=== PATIENT | female | born 1935 | race Caucasian/White ===

== ENCOUNTER 2021-03-13 10:51 | Inpatient (IN) | payer MEDICARE ==
[~2021-03-13] VITALS: Ht 154.9 cm; Wt 67.6 kg
[2021-03-13] MEDS ORDERED: NORVASC5 MG PO (12:04)
[2021-03-13] MEDS ORDERED: LIPITOR40 MG PO (12:05)
[2021-03-13] MEDS ORDERED: COZAAR50 M1 PO (12:07)
[2021-03-13] MEDS ORDERED: LOPRESSOR25 MG PO (12:09)
[2021-03-13] MEDS ORDERED: PROTONIX40 MG PO (12:11)
[2021-03-13] MEDS ORDERED: SEROQUEL25 MG PO (12:12)
[2021-03-13] MEDS ORDERED: CARAFATE1 G1 PO (12:13)
[2021-03-13] MEDS ORDERED: TRAD5TAB1 PO (12:14)
[2021-03-13 16:43] VITALS: BP 155/93
[2021-03-13 20:00] VITALS: BP 125/57
[2021-03-14 06:24] LABS: BASO # 0.1 10*3/uL (0.0-0.1); BASO % 1.4 % (0.0-1.0); EOS # 0.4 10*3/uL (0.0-0.4); HEMATOCRIT 34.4 % (37.0-47.0); LYMPH # 1.2 10*3/uL (1.3-4.4); LYMPH % 14.9 % (27.0-41.0); MEAN CELL VOLUME 97.5 fl (81.0-99.0); MEAN CORPUSCULAR HGB 31.2 pg (27.0-31.0); MEAN PLATELET VOLUME 9.7 fl (9.6-12.3); MONO # 0.7 10*3/uL (0.1-1.0); NEUT # 5.5 10*3/uL (2.3-7.9); NEUT % 69.2 % (47.0-73.0); PLATELET COUNT AUTOMATED 256 10*3/uL (130-400); RED BLOOD COUNT 3.53 10*6/uL (4.10-5.10); RED CELL DISTRI WIDTH 12.2 % (0-14.5); WHITE BLOOD COUNT 7.9 10*3/uL (4.8-10.8)
[2021-03-14 06:39] LABS: ALBUMIN 3.1 gm/dl (3.1-4.5); ALKALINE PHOSPHATASE 79 U/L (45-117); BUN 10 mg/dl (7-24); CHLORIDE 107 mmol/L (98-107); CHOLESTEROL 150 mg/dL (<200); CREATININE 0.89 mg/dL (0.55-1.02); POTASSIUM 3.9 mmol/L (3.5-5.1); SGOT/AST 19 IU/L (3-35); SGPT/ALT 23 U/L (12-78); SODIUM 141 mmol/L (136-145); TOTAL PROTEIN 6.7 gm/dL (6.4-8.2); TRIGLYCERIDES 114 mg/dl (<150)
[2021-03-14 06:48] LABS: LDL CHOLESTEROL 79 mg/dL (9-159); THYROID STIM HORMONE (HS) 0.397 uIU/ml (0.358-4.75)
[2021-03-14 06:56] LABS: VITAMIN D, 25-HYDROXY 41.7 ng/mL (30-100)
[2021-03-14 07:49] VITALS: BP 144/60
[2021-03-14 19:04] VITALS: BP 115/80
[2021-03-15 07:24] VITALS: BP 141/71
[2021-03-15 16:22] LABS: BILIRUBIN Negative (Negative); BLOOD Trace-Lysed (Negative); CLARITY Clear (Clear); COLOR Yellow (Yellow); GLUCOSE Negative (Negative); KETONE Trace (Negative); LEUKO ESTERASE 1+ (Negative); NITRITE Negative (Negative); UROBILINOGEN 0.2 E.U./dl (0.0-1.0)
[2021-03-15 16:39] LABS: BACTERIA TRACE; EPITHELIAL CELLS 31-40; MUCOUS 1+; RBC 0-2 rbc/hpf (0-2)
[2021-03-15 20:00] VITALS: BP 127/86
[2021-03-16 07:23] VITALS: BP 151/76
[2021-03-16 20:10] VITALS: BP 150/59
[2021-03-17 07:39] VITALS: BP 144/68
[2021-03-17 20:00] VITALS: BP 128/54
[2021-03-18 08:00] VITALS: BP 117/69
[2021-03-18 20:00] VITALS: BP 122/64
[2021-03-19 07:15] VITALS: BP 161/52
[2021-03-19 20:00] VITALS: BP 104/67
[2021-03-19 21:04] VITALS: BP 132/64
[2021-03-20 07:15] VITALS: BP 142/51
[2021-03-20 20:46] VITALS: BP 141/63
[2021-03-21 07:31] VITALS: BP 129/47
[2021-03-21 20:00] VITALS: BP 140/58
[2021-03-22 07:18] VITALS: BP 139/54
[2021-03-22 20:00] VITALS: BP 156/53
[2021-03-23 07:37] VITALS: BP 140/59
[2021-03-23] MEDS ORDERED: RIVASTIGMINE1 EAC2 T (08:31)
[2021-03-23] MEDS ORDERED: MIRTAZAPINE15 M2 PO (08:31)
[2021-03-23] MEDS ORDERED: MEMANTINE HCL10 MG PO (08:31)
[2021-03-23] MEDS ORDERED: HYDROXYZINE HCL25 MG PO (08:31)
== END 2021-03-23 12:30 | DRG 883 ==
LOC: 3N 10:51
PROVIDERS: ADMIT Psychiatry & Neurology Psychiatry; ATTEND Psychiatry & Neurology Psychiatry
DX: F63.81 Intermittent explosive disorder (principal); F02.81 Dementia in other diseases classified elsewhere, unspecified severity, with behavioral disturbance; D64.9 Anemia, unspecified; M19.90 Unspecified osteoarthritis, unspecified site; M81.0 Age-related osteoporosis without current pathological fracture; G30.9 Alzheimer's disease, unspecified; I25.10 Atherosclerotic heart disease of native coronary artery without angina pectoris; K21.9 Gastro-esophageal reflux disease without esophagitis; R00.0 Tachycardia, unspecified; F41.9 Anxiety disorder, unspecified; G47.00 Insomnia, unspecified; Z20.822 Contact with and (suspected) exposure to COVID-19; I10 Essential (primary) hypertension; E78.5 Hyperlipidemia, unspecified; Z96.659 Presence of unspecified artificial knee joint; E11.69 Type 2 diabetes mellitus with other specified complication; Z88.6 Allergy status to analgesic agent; Z88.5 Allergy status to narcotic agent; Z88.8 Allergy status to other drugs, medicaments and biological substances; Z90.49 Acquired absence of other specified parts of digestive tract; Z90.710 Acquired absence of both cervix and uterus